=== PATIENT | female | born 1990 | race Caucasian/White ===

== ENCOUNTER 2017-08-12 02:39 | Emergency (ER) | payer SELFPAY ==
[~2017-08-12] VITALS: Ht 177.8 cm; Wt 49.9 kg
[2017-08-12] MEDS ORDERED: XANAX0.25 MG ORAL (02:47)
[2017-08-12] MEDS ORDERED: FLUOXETINE HCL10 MG ORAL (02:48)
[2017-08-12 03:30] VITALS: BP 99/79
--- NOTE | 2017-08-12 03:34 | Emergency Room Report ---
History of Present Illness General Chief Complaint: Alcohol Intoxication Source: Patient, Family Member, Friend, EMS Present Illness HPI This is a 27-year-old female with no past medical history. History from mom is that she has a history of alcohol abuse and was seen in ER in [place] before for it. She moved out here and has not had alcohol for 2 years per mom. Her friend called 911 because she found patient in the bathroom unconscious with a bottle of alcohol next to her. Patient was able to wake up somewhat and denies any drug use other than alcohol. No trauma. No other complaint. Unable to get much of history from patient because of her intoxication. Allergies: Coded Allergies: No Known Allergies (Unverified , 08/12/17) Patient History Past Medical History: see triage record, old chart reviewed Past Surgical History: none Pertinent Family History: none Social History: Reports: alcohol use; Denies: smoking Now: No Immunizations: other Reviewed Nursing Documentation: PMH: Agreed; PSxH: Agreed Nursing Documentation-PMH Past Medical History: No History, Except For History Of Psychiatric Problem: Yes Review of Systems All Other Systems: limited - secondary to intoxication Physical Exam Vital Signs Date Time Temp Pulse Resp B/P (MAP) Pulse Ox O2 Delivery O2 Flow Rate FiO2 08/12/17 02:41 97.0 104 16 110/71 99 Room Air 97.0 Sp02 EP Interpretation: reviewed, normal General Appearance: well appearing, no apparent distress, other - very Intoxicated, sleepy Head: normocephalic, atraumatic Eyes: bilateral eye PERRL, bilateral eye EOMI ENT: normal pharynx Neck: full range of motion, supple, no meningismus Respiratory: chest non-tender, lungs clear, normal breath sounds Cardiovascular #1: regular rate, rhythm, no murmur Gastrointestinal: normal bowel sounds, non tender, no mass, no organomegaly, no bruit, non-distended Musculoskeletal: back normal, normal range of motion Neurologic: grossly normal Skin: warm/dry Medical Decision Making Diagnostic Impression: Primary Impression: Acute alcoholic intoxication Qualified Codes: F10.929 - Alcohol use, unspecified with intoxication, unspecified ER Course Patient presents with acute alcohol intoxication. No drugs. After only one hour she is now awake and pull out her IV. Said she was to go home. She has no ride at this moment however. I spoke with mom who said that she has a problem with alcohol abuse since she is 20. Has been to hospital multiple times. Has been in rehabilitation multiple time. Her alcohol level extremely high but she is speaking without slurring her speech. This showed high tolerance. Patient is not suicidal homicidal. Said that she missed her Prozac dose yesterday. I gave her a dose here. We'll try to call roommate in the morning to see if she can be picked up. patient is arty taking XANAX At this moment, she denies any suicidal thoughts or homicidal thought. We will discharge home once she has a ride. Last Vital Signs Date Time Temp Pulse Resp B/P (MAP) Pulse Ox O2 Delivery O2 Flow Rate FiO2 08/12/17 02:41 97.0 104 16 110/71 99 Room Air 97.0 Status: improved Disposition: HOME, SELF-CARE Condition: Improved Patient Instructions: Alcohol Intoxication, [id number] Additional Instructions: Follow-up with AA and rehabilitation within a week. Return if symptom worsen. Abstain from alcohol. DIVINA PADILLA M.D. August 12, 2017 03:34
[2017-08-12 06:18] VITALS: BP 103/47
[2017-08-12 06:44] VITALS: BP 101/63
[2017-08-12] MEDS ORDERED: ONDANSETRON ODT4 MG ORAL (08:03)
[2017-08-12] MEDS ORDERED: PEPCID AC20 M2 PO (08:03)
[2017-08-12 09:08] VITALS: BP 105/59
[2017-08-12 09:40] VITALS: BP 105/59
== END 2017-08-12 09:40 | disposition home or self-care (01) ==
LOC: EDBD 02:39 → EMR 07:30
DX: F10.129 Alcohol abuse with intoxication, unspecified (principal)
CPT/HCPCS: 36415; 80307; 99283; G0480; 80329